=== PATIENT | male | born 1990 | race Caucasian/White ===

== ENCOUNTER 2020-01-12 01:12 | Emergency (ER) | payer BC, OTHER ==
[~2020-01-12] VITALS: Ht 182.9 cm; Wt 80.8 kg
--- NOTE | 2020-01-12 01:23 | NUR ---
[facility] CALLED AT THIS TIME, WOUND IS SUPERFICIAL
[2020-01-12] MEDS ORDERED: CEPHALEXIN 500 MG CAPSULE ONE (01:43)
[2020-01-12] MEDS ORDERED: LIDOCAINE-MPF 1%, 5ML ONE (01:43)
[2020-01-12] MEDS ORDERED: DIPH,PERTUSS(ACELL),TET VAC/PF 0.5 ML IM-VACC ONE ×2 (01:43→02:00)
--- NOTE | 2020-01-12 01:49 | NUR ---
PT TO [facility] VIA [facility] AT THIS TIME.
--- NOTE | 2020-01-12 01:54 | NUR ---
PT MEDICATED PER [facility]
[2020-01-12] MEDS ORDERED: LIDOCAINE-MPF 1%, 5ML INFIL ONE (02:00)
[2020-01-12] MEDS ORDERED: CEPHALEXIN 500 MG CAPSULE PO ONE (02:00)
[2020-01-12] MEDS ORDERED: NEOSPORIN OINT. PKT 1 PACKET ONE (02:46)
[2020-01-12 03:18] VITALS: BP 132/78
== END 2020-01-12 03:21 | disposition home or self-care (01) ==
LOC: ED 02:20
DX: S21.111A Laceration without foreign body of right front wall of thorax without penetration into thoracic cavity, initial encounter (principal); Y04.8XXA Assault by other bodily force, initial encounter; Y93.89 Activity, other specified; Y92.098 Other place in other non-institutional residence as the place of occurrence of the external cause; Y99.8 Other external cause status
CPT/HCPCS: 12031; 71046; 90471; 90715; 99284

== ENCOUNTER 2020-01-21 00:35 | Emergency (ER) | payer OTHER ==
[~2020-01-21] VITALS: Ht 182.9 cm; Wt 78.8 kg
[2020-01-21 01:21] VITALS: BP 129/67
== END 2020-01-21 01:23 | disposition home or self-care (01) ==
LOC: ED 01:01
DX: S21.119D Laceration without foreign body of unspecified front wall of thorax without penetration into thoracic cavity, subsequent encounter (principal); Z48.00 Encounter for change or removal of nonsurgical wound dressing; X58.XXXD Exposure to other specified factors, subsequent encounter
CPT/HCPCS: 99281

== ENCOUNTER 2020-11-30 16:30 | Emergency (ER) | payer BC, OTHER ==
[~2020-11-30] VITALS: Ht 185.4 cm; Wt 70.9 kg
[2020-11-30] MEDS ORDERED: CLINDAMYCIN 300 MG CAPSULE PO ONE (17:30)
[2020-11-30] MEDS ORDERED: CLINDAMYCIN 300 MG CAPSULE ONE (17:35)
[2020-11-30 17:56] VITALS: BP 102/74
== END 2020-11-30 17:57 | disposition home or self-care (01) ==
LOC: ED 17:45
DX: K04.7 Periapical abscess without sinus (principal); K02.9 Dental caries, unspecified; F17.210 Nicotine dependence, cigarettes, uncomplicated
CPT/HCPCS: 99283; 99406